=== PATIENT | female | born 1955 | race Caucasian/White ===

== ENCOUNTER → 2017-10-10 | Outpatient (CLI) | payer OTHER ==
--- NOTE | 2017-10-10 15:09 | CPEKG ---
Heart Rate: 58 RR Interval: 1034 P-R Interval: 188 QRSD Interval: 94 QT Interval: 424 QTC Interval: 417 P Edmonds: 33 QRS Edmonds: 47 T Wave Edmonds: 16 EKG Severity - OTHERWISE NORMAL ECG - EKG Impression: SINUS RHYTHM EKG Impression: VENTRICULAR PREMATURE COMPLEX EKG Impression: INTERPOLATED VENTRICULAR PREMATURE COMPLEX Electronically Signed By: Jus Dial 12-Oct-2017 09:00:17
== END ==
LOC: FCP 14:48
PROVIDERS: ATTEND Family Medicine
DX: R00.2 Palpitations (principal)